=== PATIENT | female | born 1990 | race Caucasian/White ===

== ENCOUNTER 2024-06-07 15:33 | Emergency (ER) | payer MEDICAID ==
[~2024-06-07] VITALS: Ht 165.1 cm; Wt 103.9 kg
[2024-06-07 15:47] VITALS: TEMP 97.5
[2024-06-07] MEDS ORDERED: PRED20TA PO (17:35)
[2024-06-07] MEDS ORDERED: ALBU8HFA INH (17:35)
[2024-06-07] MEDS ORDERED: BENZ-38 PO (17:35)
[2024-06-07] MEDS ORDERED: PROM25TA14 PO (17:35)
[2024-06-07] MEDS: ipratropium/albuterol 3ml nebule NEB STA (17:39)
[2024-06-07 17:43] VITALS: PULSE 88; RESP 18; O2SAT 100
[2024-06-07 17:46] VITALS: PULSE 83; RESP 18; O2SAT 98
[2024-06-07] MEDS: dexamethasone sod phosphate 10mg/ml inj PO STA (17:49)
[2024-06-07 17:53] VITALS: BP 132/78; PULSE 75; RESP 16; O2SAT 98
== END 2024-06-07 17:58 | disposition home or self-care (01) ==
LOC: ER 15:35
DX: J20.9 Acute bronchitis, unspecified (principal)
CPT/HCPCS: 71045; 94640; 99283; J1100; 94760